=== PATIENT | male | born 1970 | race Caucasian/White ===

== ENCOUNTER 2020-09-16 12:43 | Inpatient (IN) | payer SELFPAY ==
[~2020-09-16] VITALS: Ht 170.2 cm; Wt 113.8 kg
[2020-09-16 12:54] LABS: BILIRUBIN,URINE NEGATIVE (NEG); CLARITY,URINE CLOUDY; COLOR,URINE YELLOW; NITRITE,URINE NEGATIVE (NEG); PH,URINE 6.5 (<5.0-8.0); PROTEIN,URINE NEGATIVE (NEG-TRACE)
--- NOTE | 2020-09-16 13:05 | PHYS DOC ---
Past Medical History Past Medical History: Hypertension General Adult EDM: Chief Complaint: ABDOMINAL PAIN HPI: HPI: Patient is a 50 year old male who presented to ER for evaluation of periumbilical pain since yesterday. Patient noted a tender knot at his umbilical area. Patient had some diarrhea yesterday. Patient denies any nausea vomiting. Patient denies any cough or fever. Review of Systems: Review of Systems: Constitutional: Denies fever or chills. [] Eyes: Denies change in visual acuity. [] HENT: Denies nasal congestion or sore throat. [] Respiratory: Denies cough or shortness of breath. [] Cardiovascular: Denies chest pain or edema. [] GI: Positive for abdominal pain, no nausea vomiting, positive for diarrhea. : Denies dysuria. [] Musculoskeletal: Denies back pain or joint pain. [] Integument: Denies rash. [] Neurologic: Denies headache, focal weakness or sensory changes. [] Endocrine: Denies polyuria or polydipsia. [] Lymphatic: Denies swollen glands. [] Psychiatric: Denies depression or anxiety. [] Heart Score: Risk Factors: Risk Factors: DM, Current or recent (<one month) smoker, HTN, HLP, family history of CAD, obesity. Risk Scores: Score 0 - 3: 2.5% MACE over next 6 weeks - Discharge Home Score 4 - 6: 20.3% MACE over next 6 weeks - Admit for Clinical Observation Score 7 - 10: 72.7% MACE over next 6 weeks - Early Invasive Strategies Allergies: Allergies: Allergies Coded Allergies Type Severity Reaction Last Updated Verified No Known Drug Allergies 09/16/20 No Physical Exam: PE: Constitutional: Well developed, well nourished, no acute distress, non-toxic appearance. [] HENT: Normocephalic, atraumatic, bilateral external ears normal, oropharynx moist, no oral exudates, nose normal. [] Eyes: PERRLA, EOMI, conjunctiva normal, no discharge. [] Neck: Normal range of motion, no tenderness, supple, no stridor. [] Cardiovascular:Heart rate regular rhythm, no murmur [] Lungs & Thorax: Bilateral breath sounds clear to auscultation [] Abdomen: Bowel sounds normal, there is a tender nonreducible umbilical hernia with erythema of the surrounding area. [] Skin: Warm, dry, no erythema, no rash. [] Back: No tenderness, no CVA tenderness. [] Extremities: No tenderness, no cyanosis, no clubbing, ROM intact, no edema. [] Neurologic: Alert and oriented X 3, normal motor function, normal sensory function, no focal deficits noted. [] Psychologic: Affect normal, judgement normal, mood normal. [] Current Patient Data: Labs: Laboratory Tests Test 09/16/20 12:45 09/16/20 13:18 Urine Collection Type Unknown Urine Color Yellow Urine Clarity Cloudy Urine pH 6.5 Urine Specific [place] <=1.005 Urine Protein Negative mg/dL Urine Glucose (UA) Negative mg/dL Urine Ketones (Stick) Negative mg/dL Urine Blood Negative Urine Nitrite Negative Urine Bilirubin Negative Urine Urobilinogen Dipstick 1.0 mg/dL Urine Leukocyte Esterase Negative Urine RBC 0 /HPF Urine WBC 0 /HPF Urine Bacteria 0 /HPF White Blood Count 6.7 x10^3/uL Red Blood Count 4.73 x10^6/uL Hemoglobin 14.9 g/dL Hematocrit 42.8 % Mean Corpuscular Volume 91 fL Mean Corpuscular Hemoglobin 31 pg Mean Corpuscular Hemoglobin Concent 35 g/dL Red Cell Distribution Width 12.6 % Platelet Count 255 x10^3/uL Neutrophils (%) (Auto) 76 % Lymphocytes (%) (Auto) 16 % Monocytes (%) (Auto) 6 % Eosinophils (%) (Auto) 1 % Basophils (%) (Auto) 1 % Neutrophils # (Auto) 5.1 x10^3/uL Lymphocytes # (Auto) 1.1 x10^3/uL Monocytes # (Auto) 0.4 x10^3/uL Eosinophils # (Auto) 0.1 x10^3/uL Basophils # (Auto) 0.0 x10^3/uL Sodium Level 134 mmol/L Potassium Level 3.9 mmol/L Chloride Level 99 mmol/L Carbon Dioxide Level 29 mmol/L Anion Gap 6 Blood Urea Nitrogen 9 mg/dL Creatinine 0.7 mg/dL Estimated GFR (Cockcroft-Gault) 118.9 BUN/Creatinine Ratio 13 Glucose Level 151 mg/dL Calcium Level 9.0 mg/dL Total Bilirubin 0.9 mg/dL Aspartate Amino Transf (AST/SGOT) 50 U/L Alanine Aminotransferase (ALT/SGPT) 40 U/L Alkaline Phosphatase 87 U/L Total Protein 7.0 g/dL Albumin 3.7 g/dL Albumin/Globulin Ratio 1.1 Lipase 89 U/L Current Medications Medications (Trade) Dose Ordered Sig/Antonio Route PRN Reason Start Time Stop Time Status Last Admin Dose Admin Iohexol (Omnipaque 300 Mg/ml) 75 ml 1X ONCE IV 09/16/20 14:15 09/16/20 14:17 DC 09/16/20 14:27 Info (CONTRAST GIVEN -- Rx MONITORING) 1 each PRN DAILY PRN MC SEE COMMENTS 09/16/20 14:30 09/18/20 14:29 EKG: EKG: [] Radiology/Procedures: Radiology/Procedures: [][facility] [address] [place] [address] IMAGING REPORT Signed PATIENT: EDIS SPENCER ACCOUNT: [id number] : 11/26/1928 LOCATION: ER AGE: 89 SEX: M EXAM STATUS: PRE ER ORD. PHYSICIAN: MARITA FLORES DO REASON: chest pain PROCEDURE: PORTABLE CHEST 1V XR CHEST 1V Clinical Indication: Reason: chest pain Comparison: None. Findings: The cardiomediastinal silhouette is normal. Atherosclerotic thoracic aorta. Tiny radiodensities project over the left costophrenic angle, may be artifact or tiny metallic foreign bodies. Lungs are clear. There is no pneumothorax. No pleural effusion is appreciated. There is bilateral lateral pleural thickening. No acute bone abnormality. Arthropathy of the shoulders, worse on the right. IMPRESSION: No acute cardiopulmonary process. Electronically signed by: Elliott Alvarado MD (09/16/2020 11:18 AM) [id number] DICTATED and SIGNED BY: ELLIOTT ALVARADO MD DATE: 09/16/20 [id number] 0 Course & Med Decision Making: Course & Med Decision Making Pertinent Labs and Imaging studies reviewed. (See chart for details) Patient is a 50-year-old male who was found to have an incarcerated umbilical hernia containing fat and part of the appendage of the sigmoid colon, discussed with the General Surgeon division roadmaster, Dr. JATINDER GOLD, recommended admission to hospitalist service, get rapid COVID TEST, WILL FIX IT TOMORROW. KEEP NPO AFTER MIDNIGHT. Discussed with Dr. Montesinos, Hospitalist, agreed to admit patient. Shola Disclaimer: Shola Disclaimer: This electronic medical record was generated, in whole or in part, using a voice recognition dictation system. Departure Departure Impression: Primary Impression: Incarcerated umbilical hernia Disposition: ADMITTED INPT THIS HOSP Admitting Physician: [facility] (Dr. Montesinos) Condition: STABLE Referrals: UNKNOWN PCP NAME (PCP) MARITA FLORES DO Sep 16, 2020 13:05
[2020-09-16 13:16] LABS: BACTERIA,URINE 0 /HPF (0-FEW); RBC,URINE 0 /HPF (0-2); WBC,URINE 0 /HPF (0-4)
[2020-09-16 13:29] LABS: BASO % 1 % (0-3); EOS # 0.1 x10^3/uL (0.0-0.7); EOS % 1 % (0-3); HEMATOCRIT 42.8 % (39.0-53.0); HEMOGLOBIN 14.9 g/dL (13.0-17.5); LYMPH # 1.1 x10^3/uL (1.0-4.8); LYMPH % 16 % (24-48); MEAN CORPUSCULAR HEMOGLOBIN 31 pg (25-35); MEAN CORPUSCULAR HGB CONC 35 g/dL (31-37); MEAN CORPUSCULAR VOLUME 91 fL (79-100); MONO # 0.4 x10^3/uL (0.0-1.1); MONO % 6 % (0-9); NEUT # 5.1 x10^3/uL (1.8-7.7); NEUT % 76 % (31-73); PLATELET COUNT 255 x10^3/uL (140-400); RED BLOOD COUNT 4.73 x10^6/uL (4.30-5.70); RED CELL DISTRIBUTION WIDTH 12.6 % (11.5-14.5); WHITE BLOOD COUNT 6.7 x10^3/uL (4.0-11.0)
[2020-09-16 13:40] LABS: CREATININE 0.7 mg/dL (0.7-1.3); GFR 118.9; POTASSIUM 3.9 mmol/L (3.5-5.1)
[2020-09-16 13:46] LABS: ALBUMIN 3.7 g/dL (3.4-5.0); ALBUMIN/GLOBULIN RATIO 1.1 (1.0-1.7); TOTAL BILIRUBIN 0.9 mg/dL (0.2-1.0)
[2020-09-16] MEDS ORDERED: IOHEXOL 300 MG/ML 100ML VIAL. IV ONE (14:15)
[2020-09-16] MEDS ORDERED: CONTRAST GIVEN. MC PRN (14:30)
--- NOTE | 2020-09-16 15:00 | RAD ---
PQRS Compliance Statement: One or more of the following individualized dose reduction techniques were utilized for this examinat ion: 1. Automated exposure control 2. Adjustment of the mA and/or kV according to patient size 3. Use of iterative reconstruction technique CT ABDOMEN+PELVIS W Clinical Indication: Reason: PERIUMBILICAL ABDOMINAL PAIN, UMBILICAL HERNIA, NONREDUCIBLE. Comparison: None. Technique: Helical CT imaging of the abdomen and pelvis is performed after 75 cc of Omnipaque 300 IV contrast. Oral contrast not administered. Findings: Tiny calcified granuloma left lower lobe. Cardiac size normal. Liver, gallbladder, spleen, pancreas, adrenal glands, abdominal aorta, and kidneys are normal. No obvious abnormality of the stomach. There is periumbilical hernia contains fat and an inflamed probable epiploic appendage from the adjac ent redundant sigmoid colon. The appendage has typical central fat density with a soft tissue rim. Th ere is surrounding inflammation in the hernia. There is ventral abdominal wall subcutaneous fat indur ation surrounding the umbilical hernia. There is no dilated small bowel. There is no colon wall thickening. The appendix is not seen, no seco ndary signs of appendicitis. There is no abdominal adenopathy. The urinary bladder is not well distended accentuating the wall thickness. Prostate and seminal vesic les are normal. There is no pelvic free fluid. No acute bone abnormality. There is anterior endplate spurring of L1/L2. IMPRESSION: There is subcutaneous fat induration surrounding small umbilical hernia. Within the hernia there is a probable epiploic appendage of the adjacent sigmoid colon. There is appendagitis. Electronically signed by: Elliott Alvarado MD (09/16/2020 2:58 PM) [id number]
[2020-09-16] MEDS ORDERED: ONDANSETRON PF 4 MG/2 ML VIAL. IV PRN (15:45)
[2020-09-16] MEDS ORDERED: MORPHINE SULFATE 2 MG/ML VIAL. IV PRN (15:45)
[2020-09-16] MEDS ORDERED: ONDANSETRON PF 4 MG/2 ML VIAL. IVP PRN (16:30)
[2020-09-16] MEDS ORDERED: MAG HYDROX/ALUMINUM HYD/SIMETH 30 ML ORAL.SUSP PO PRN (16:30)
[2020-09-16] MEDS ORDERED: BISACODYL 10 MG SUPP.RECT. PR PRN (16:30)
[2020-09-16] MEDS ORDERED: ACETAMINOPHEN 325 MG TABLET. PO PRN (16:30)
[2020-09-16] MEDS ORDERED: ZOLPIDEM 5 MG TABLET. PO PRN (16:30)
[2020-09-16] MEDS ORDERED: MAGNESIUM HYDROXIDE 2,400 MG/30 ML ORAL.SUSP. PO PRN (16:30)
[2020-09-16] MEDS ORDERED: CALCIUM CARBONATE 500 MG TAB.CHEW PO PRN (16:30)
--- NOTE | 2020-09-16 16:42 | PDOC1 ---
History and Physical Date of Admission Date of Admission DATE: 09/16/20 TIME: 16:26 Identification/Chief Complaint Chief Complaint Abdominal pain Source Source: Patient History of Present Illness History of Present Illness Patient 50-year-old male with past medical history hypertension, hyperlipidemia presents to the ER with complaints of worsening abdominal pain. States pain started 4 days ago as he was lifting a heavy object. States at the time pain was about 2/10, however pain has progressed to currently 7/10. He noticed an associated hard lump in his umbilical region. CT abdomen pelvis obtained in the ER and a small umbilical hernia was noted. Maximum blood pressure in ER was noted to be 204/96. Denies nausea, vomiting, or constipation. Will admit patient with surgical consult for further medical management. Past Medical History Past Medical History Hypertension, hyperlipidemia Past Surgical History Past Surgical History: Appendectomy Family History Family History: Stroke Social History Smoke: No ALCOHOL: occassional Drugs: Marijuana Current Problem List Problem List Problems Medical Problems: (1) Incarcerated umbilical hernia Status: Acute Current Medications Current Medications Current Medications Iohexol (Omnipaque 300 Mg/ml) 75 ml 1X ONCE IV Last administered on 09/16/20at 14:27; Start 09/16/20 at 14:15; Stop 09/16/20 at 14:17; Status DC Info (CONTRAST GIVEN -- Rx MONITORING) 1 each PRN DAILY PRN MC SEE COMMENTS; Start 09/16/20 at 14:30; Stop 09/18/20 at 14:29 Ondansetron HCl (Zofran) 4 mg PRN Q8HRS PRN IV NAUSEA/VOMITING; Start 09/16/20 at 15:45; Stop 09/17/20 at 15:44 Morphine Sulfate (Morphine Sulfate) 2 mg PRN Q2HR PRN IV PAIN; Start 09/16/20 at 15:45; Stop 09/17/20 at 15:44 Ondansetron HCl (Zofran) 4 mg PRN Q6HRS PRN IVP NAUSEA/VOMITING; Start 09/16/20 at 16:30; Status UNV Al Hydroxide/Mg Hydroxide (Mylanta Plus Xs) 30 ml PRN Q3HRS PRN PO HEARTBURN / GAS; Start 09/16/20 at 16:30; Status UNV Calcium Carbonate/ Glycine (Tums) 500 mg PRN Q3HRS PRN PO UPSET STOMACH; Start 09/16/20 at 16:30; Status UNV Zolpidem Tartrate (Ambien) 5 mg PRN QHS PRN PO INSOMNIA, MAY REPEAT IN 1HR; Start 09/16/20 at 16:30; Status UNV Acetaminophen/ Hydrocodone Bitart (Lortab 5/325) 1 tab PRN Q4HRS PRN PO MILD PAIN 1-3; Start 09/16/20 at 16:30; Status UNV Acetaminophen/ Hydrocodone Bitart (Lortab 5/325) 2 tab PRN Q4HRS PRN PO MODERATE PAIN, SEVERE PAIN; Start 09/16/20 at 16:30; Status UNV Acetaminophen (Tylenol) 650 mg PRN Q6HRS PRN PO Headaches, Temp > 101.5F; Start 09/16/20 at 16:30; Status UNV Magnesium Hydroxide (Milk Of Magnesia) 2,400 mg PRN Q12HR PRN PO CONSTIPATION; Start 09/16/20 at 16:30; Status UNV Bisacodyl (Dulcolax Supp) 10 mg PRN DAILY PRN CA CONSTIPATION; Start 09/16/20 at 16:30; Status UNV Heparin Sodium (Porcine) (Heparin Sodium) 5,000 unit Q8HRS SQ ; Start 09/16/20 at 22:00; Status UNV Allergies Allergies: Coded Allergies: No Known Drug Allergies (Unverified , 09/16/20) ROS Review of System GENERAL: No history of weight change, weakness or fevers. SKIN: No bruising, hair changes or rashes. EYES: No blurred, double or loss of vision. NOSE AND THROAT: No history of nosebleeds, hoarseness or sore throat. HEART: Denies chest pain, denies palpitations. LUNGS: Denies cough, hemoptysis, wheezing or shortness of breath. GASTROINTESTINAL: Abdominal pain. Denies nausea, vomiting. GENITOURINARY: Denies dysuria, frequency, urgency, hematuria. NEUROLOGIC: Denies history of numbness, tingling, tremor or weakness. PSYCHIATRIC: Denies anxiety, denies depression. ENDOCRINE: No history of heat or cold intolerance, polyuria or polydipsia. EXTREMITIES: Denies muscle weakness, joint pain, pain on walking or stiffness. Physical Exam Physical Exam General: Alert, Oriented X3, Cooperative, No acute distress HEENT: PERRLA, EOMI Lungs: Clear to auscultation, Normal air movement Heart: RRR, no murmurs Cardiovascular: S1, S2 Abdomen: Tender, nonreducible umbilical hernia. Normal bowel sounds, Soft. Extremities: No clubbing, No cyanosis Skin: Periumbilical erythema. No significant lesion Neuro: Normal speech, Normal tone, Sensation intact Psych/Mental Status: Mental status NL, Mood NL Vitals Vitals Vital Signs Date Time Temp Pulse Resp B/P (MAP) Pulse Ox O2 Delivery O2 Flow Rate FiO2 09/16/20 14:30 75 204/96 (132) 98 Room Air 09/16/20 12:50 98.6 18 98.6 Labs Labs Laboratory Tests Test 09/16/20 12:45 09/16/20 13:18 Urine Collection Type Unknown Urine Color Yellow Urine Clarity Cloudy Urine pH 6.5 (<5.0-8.0) Urine Specific [place] <=1.005 (1.000-1.030) Urine Protein Negative mg/dL (NEG-TRACE) Urine Glucose (UA) Negative mg/dL (NEG) Urine Ketones (Stick) Negative mg/dL (NEG) Urine Blood Negative (NEG) Urine Nitrite Negative (NEG) Urine Bilirubin Negative (NEG) Urine Urobilinogen Dipstick 1.0 mg/dL (0.2 mg/dL) Urine Leukocyte Esterase Negative (NEG) Urine RBC 0 /HPF (0-2) Urine WBC 0 /HPF (0-4) Urine Bacteria 0 /HPF (0-FEW) White Blood Count 6.7 x10^3/uL (4.0-11.0) Red Blood Count 4.73 x10^6/uL (4.30-5.70) Hemoglobin 14.9 g/dL (13.0-17.5) Hematocrit 42.8 % (39.0-53.0) Mean Corpuscular Volume 91 fL (79-100) Mean Corpuscular Hemoglobin 31 pg (25-35) Mean Corpuscular Hemoglobin Concent 35 g/dL (31-37) Red Cell Distribution Width 12.6 % (11.5-14.5) Platelet Count 255 x10^3/uL (140-400) Neutrophils (%) (Auto) 76 % (31-73) Lymphocytes (%) (Auto) 16 % (24-48) Monocytes (%) (Auto) 6 % (0-9) Eosinophils (%) (Auto) 1 % (0-3) Basophils (%) (Auto) 1 % (0-3) Neutrophils # (Auto) 5.1 x10^3/uL (1.8-7.7) Lymphocytes # (Auto) 1.1 x10^3/uL (1.0-4.8) Monocytes # (Auto) 0.4 x10^3/uL (0.0-1.1) Eosinophils # (Auto) 0.1 x10^3/uL (0.0-0.7) Basophils # (Auto) 0.0 x10^3/uL (0.0-0.2) Sodium Level 134 mmol/L (136-145) Potassium Level 3.9 mmol/L (3.5-5.1) Chloride Level 99 mmol/L (98-107) Carbon Dioxide Level 29 mmol/L (21-32) Anion Gap 6 (6-14) Blood Urea Nitrogen 9 mg/dL (8-26) Creatinine 0.7 mg/dL (0.7-1.3) Estimated GFR (Cockcroft-Gault) 118.9 BUN/Creatinine Ratio 13 (6-20) Glucose Level 151 mg/dL (70-99) Calcium Level 9.0 mg/dL (8.5-10.1) Total Bilirubin 0.9 mg/dL (0.2-1.0) Aspartate Amino Transf (AST/SGOT) 50 U/L (15-37) Alanine Aminotransferase (ALT/SGPT) 40 U/L (16-63) Alkaline Phosphatase 87 U/L (46-116) Total Protein 7.0 g/dL (6.4-8.2) Albumin 3.7 g/dL (3.4-5.0) Albumin/Globulin Ratio 1.1 (1.0-1.7) Lipase 89 U/L (73-393) Laboratory Tests Test 09/16/20 12:45 09/16/20 13:18 Urine Collection Type Unknown Urine Color Yellow Urine Clarity Cloudy Urine pH 6.5 (<5.0-8.0) Urine Specific [place] <=1.005 (1.000-1.030) Urine Protein Negative mg/dL (NEG-TRACE) Urine Glucose (UA) Negative mg/dL (NEG) Urine Ketones (Stick) Negative mg/dL (NEG) Urine Blood Negative (NEG) Urine Nitrite Negative (NEG) Urine Bilirubin Negative (NEG) Urine Urobilinogen Dipstick 1.0 mg/dL (0.2 mg/dL) Urine Leukocyte Esterase Negative (NEG) Urine RBC 0 /HPF (0-2) Urine WBC 0 /HPF (0-4) Urine Bacteria 0 /HPF (0-FEW) White Blood Count 6.7 x10^3/uL (4.0-11.0) Red Blood Count 4.73 x10^6/uL (4.30-5.70) Hemoglobin 14.9 g/dL (13.0-17.5) Hematocrit 42.8 % (39.0-53.0) Mean Corpuscular Volume 91 fL (79-100) Mean Corpuscular Hemoglobin 31 pg (25-35) Mean Corpuscular Hemoglobin Concent 35 g/dL (31-37) Red Cell Distribution Width 12.6 % (11.5-14.5) Platelet Count 255 x10^3/uL (140-400) Neutrophils (%) (Auto) 76 % (31-73) Lymphocytes (%) (Auto) 16 % (24-48) Monocytes (%) (Auto) 6 % (0-9) Eosinophils (%) (Auto) 1 % (0-3) Basophils (%) (Auto) 1 % (0-3) Neutrophils # (Auto) 5.1 x10^3/uL (1.8-7.7) Lymphocytes # (Auto) 1.1 x10^3/uL (1.0-4.8) Monocytes # (Auto) 0.4 x10^3/uL (0.0-1.1) Eosinophils # (Auto) 0.1 x10^3/uL (0.0-0.7) Basophils # (Auto) 0.0 x10^3/uL (0.0-0.2) Sodium Level 134 mmol/L (136-145) Potassium Level 3.9 mmol/L (3.5-5.1) Chloride Level 99 mmol/L (98-107) Carbon Dioxide Level 29 mmol/L (21-32) Anion Gap 6 (6-14) Blood Urea Nitrogen 9 mg/dL (8-26) Creatinine 0.7 mg/dL (0.7-1.3) Estimated GFR (Cockcroft-Gault) 118.9 BUN/Creatinine Ratio 13 (6-20) Glucose Level 151 mg/dL (70-99) Calcium Level 9.0 mg/dL (8.5-10.1) Total Bilirubin 0.9 mg/dL (0.2-1.0) Aspartate Amino Transf (AST/SGOT) 50 U/L (15-37) Alanine Aminotransferase (ALT/SGPT) 40 U/L (16-63) Alkaline Phosphatase 87 U/L (46-116) Total Protein 7.0 g/dL (6.4-8.2) Albumin 3.7 g/dL (3.4-5.0) Albumin/Globulin Ratio 1.1 (1.0-1.7) Lipase 89 U/L (73-393) Images Images CT ABDOMEN+PELVIS W Clinical Indication: Reason: PERIUMBILICAL ABDOMINAL PAIN, UMBILICAL HERNIA, NONREDUCIBLE. Comparison: None. Technique: Helical CT imaging of the abdomen and pelvis is performed after 75 cc of Omnipaque 300 IV contrast. Oral contrast not administered. Findings: Tiny calcified granuloma left lower lobe. Cardiac size normal. Liver, gallbladder, spleen, pancreas, adrenal glands, abdominal aorta, and kidneys are normal. No obvious abnormality of the stomach. There is periumbilical hernia contains fat and an inflamed probable epiploic appendage from the adjacent redundant sigmoid colon. The appendage has typical central fat density with a soft tissue rim. There is surrounding inflammation in the hernia. There is ventral abdominal wall subcutaneous fat induration surrounding the umbilical hernia. There is no dilated small bowel. There is no colon wall thickening. The appendix is not seen, no secondary signs of appendicitis. There is no abdominal adenopathy. The urinary bladder is not well distended accentuating the wall thickness. Pros brandon and seminal vesicles are normal. There is no pelvic free fluid. No acute bone abnormality. There is anterior endplate spurring of L1/L2. IMPRESSION: There is subcutaneous fat induration surrounding small umbilical hernia. Within the hernia there is a probable epiploic appendage of the adjacent sigmoid colon. There is appendagitis. VTE Prophylaxis Ordered VTE Prophylaxis Devices: No VTE Pharmacological Prophylaxi: Yes Assessment/Plan Assessment/Plan Incarcerated umbilical hernia Hypertensive urgency Plan: Consultation placed to general surgery; patient is planned for surgery tomorrow morning Empiric antibiotics for noted appendagitis. He may have cardiac diet, but NPO after midnight. Pain and nausea medications as needed Resume home anti-hypertensive medications; IV antihypertensives per blood pressure parameters FEN - Cardiac diet; NPO after midnight PPX - Heparin FULL CODE Dispo - inpatient for above Justifications for Admission Other Justification Incarcerated umbilical hernia VALERIE VALENTIN MD Sep 16, 2020 16:42
[2020-09-16] MEDS ORDERED: hydrALAZINE 20 MG/ML VIAL. IVP PRN (16:45)
[2020-09-16] MEDS ORDERED: LABETALOL 20 MG/4 ML DISP.SYRIN. IVP PRN (16:45)
[2020-09-16] MEDS ORDERED: PIP/TAZO PER PHARMACY MC PRN (16:45)
[2020-09-16] MEDS ORDERED: PIPERACILLIN/TAZOBACTAM 3.375 GM in IV NORMAL SALINE 50ML 50 ML IV ONE (17:00)
[2020-09-16] MEDS: HEPARIN for SUB-Q USE 5,000 UNIT/ML VIAL. SQ SCH ×2 (17:38→22:45)
[2020-09-16] MEDS: MORPHINE SULFATE 4 MG/ML VIAL. IV PRN (18:44)
[2020-09-16 19:00] VITALS: BP 161/89
[2020-09-16] MEDS ORDERED: atenolol (20:29)
[2020-09-16] MEDS ORDERED: lisinopril (20:29)
[2020-09-16] MEDS: HYDROcodone/APAP 5/325MG 1 TAB TABLET PO PRN (20:51)
[2020-09-16 23:00] VITALS: BP 113/59
[2020-09-17] VITALS (10 sets, daily range): BP systolic 131–153; BP diastolic 62–101
[2020-09-17] MEDS: PIPERACILLIN/TAZOBACTAM 3.375 GM in IV NORMAL SALINE 50ML 50 ML IV SCH ×4 (00:15→17:57)
[2020-09-17] MEDS ORDERED: IV RINGERS,LACTATED 1000ML 1,000 ML IV SCH (06:00)
[2020-09-17] MEDS ORDERED: MORPHINE SULFATE 2 MG/ML VIAL. IVP PRN (06:00)
[2020-09-17] MEDS ORDERED: HYDROmorphone 2 MG/ML VIAL IVP PRN (06:00)
[2020-09-17] MEDS ORDERED: PROCHLORPERAZINE 10 MG/2 ML VIAL. IVP PRN (06:00)
[2020-09-17] MEDS: HEPARIN for SUB-Q USE 5,000 UNIT/ML VIAL. SQ SCH ×3 (06:00→22:13)
[2020-09-17] MEDS ORDERED: fentaNYL PF VIAL 100 MCG/2 ML VIAL IVP PRN ×2 (06:00)
--- NOTE | 2020-09-17 06:14 | NUR ---
Patient's 0600 heparin held, as to have surgery this morning.
[2020-09-17] MEDS: MORPHINE SULFATE 4 MG/ML VIAL. IV PRN (07:44)
--- NOTE | 2020-09-17 08:32 | PDOC ---
[employer] PROGRESS NOTE Date of Service DOS: DATE: 09/17/20 TIME: 08:30 Chief Complaint Chief Complaint Incarcerated umbilical hernia Hypertensive urgency Plan: Consultation placed to general surgery; patient is planned for surgery tomorrow morning Empiric antibiotics for noted appendagitis. He may have cardiac diet, but NPO after midnight. Pain and nausea medications as needed Resume home anti-hypertensive medications; IV antihypertensives per blood pressure parameters FEN - Cardiac diet; NPO after midnight PPX - Heparin FULL CODE Dispo - inpatient for above History of Present Illness History of Present Illness Patient 50-year-old male with past medical history hypertension, hyperlipidemia presents to the ER with complaints of worsening abdominal pain. States pain started 4 days ago as he was lifting a heavy object. States at the time pain was about 2/10, however pain has progressed to currently 7/10. He noticed an associated hard lump in his umbilical region. CT abdomen pelvis obtained in the ER and a small umbilical hernia was noted. Maximum blood pressure in ER was noted to be 204/96. Denies nausea, vomiting, or constipation. Will admit patient with surgical consult for further medical management. 09/17: Patient seen and evaluated. Blood pressure improved. Still with mild periumbilical pain, resolving periumbilical erythema. Surgery planned for today. Patient adamant about being able to discharge by Sunday for [facility]. Vitals/I&O Vitals/I&O: Vital Signs Date Time Temp Pulse Resp B/P (MAP) Pulse Ox O2 Delivery O2 Flow Rate FiO2 09/17/20 07:44 Room Air 09/17/20 07:00 98.0 60 17 139/75 (96) 97 98.0 I & O 09/16/20 09/16/20 09/17/20 15:00 23:00 07:00 Intake Total 50 ml 100 ml Output Total 200 ml Balance 50 ml -100 ml Physical Exam General: Alert, Oriented X3, Cooperative, mild distress Heart: Regular rate Lungs: Clear Abdomen: Other (Tender, nonreducible umbilical hernia) Extremities: No clubbing, No cyanosis Skin: No breakdown, Other (Periumbilical erythema) Labs Labs: Laboratory Tests Test 09/16/20 12:45 09/16/20 13:18 09/16/20 15:31 Urine Collection Type Unknown Urine Color Yellow Urine Clarity Cloudy Urine pH 6.5 (<5.0-8.0) Urine Specific [place] <=1.005 (1.000-1.030) Urine Protein Negative mg/dL (NEG-TRACE) Urine Glucose (UA) Negative mg/dL (NEG) Urine Ketones (Stick) Negative mg/dL (NEG) Urine Blood Negative (NEG) Urine Nitrite Negative (NEG) Urine Bilirubin Negative (NEG) Urine Urobilinogen Dipstick 1.0 mg/dL (0.2 mg/dL) Urine Leukocyte Esterase Negative (NEG) Urine RBC 0 /HPF (0-2) Urine WBC 0 /HPF (0-4) Urine Bacteria 0 /HPF (0-FEW) White Blood Count 6.7 x10^3/uL (4.0-11.0) Red Blood Count 4.73 x10^6/uL (4.30-5.70) Hemoglobin 14.9 g/dL (13.0-17.5) Hematocrit 42.8 % (39.0-53.0) Mean Corpuscular Volume 91 fL (79-100) Mean Corpuscular Hemoglobin 31 pg (25-35) Mean Corpuscular Hemoglobin Concent 35 g/dL (31-37) Red Cell Distribution Width 12.6 % (11.5-14.5) Platelet Count 255 x10^3/uL (140-400) Neutrophils (%) (Auto) 76 % (31-73) Lymphocytes (%) (Auto) 16 % (24-48) Monocytes (%) (Auto) 6 % (0-9) Eosinophils (%) (Auto) 1 % (0-3) Basophils (%) (Auto) 1 % (0-3) Neutrophils # (Auto) 5.1 x10^3/uL (1.8-7.7) Lymphocytes # (Auto) 1.1 x10^3/uL (1.0-4.8) Monocytes # (Auto) 0.4 x10^3/uL (0.0-1.1) Eosinophils # (Auto) 0.1 x10^3/uL (0.0-0.7) Basophils # (Auto) 0.0 x10^3/uL (0.0-0.2) Sodium Level 134 mmol/L (136-145) Potassium Level 3.9 mmol/L (3.5-5.1) Chloride Level 99 mmol/L (98-107) Carbon Dioxide Level 29 mmol/L (21-32) Anion Gap 6 (6-14) Blood Urea Nitrogen 9 mg/dL (8-26) Creatinine 0.7 mg/dL (0.7-1.3) Estimated GFR (Cockcroft-Gault) 118.9 BUN/Creatinine Ratio 13 (6-20) Glucose Level 151 mg/dL (70-99) Calcium Level 9.0 mg/dL (8.5-10.1) Total Bilirubin 0.9 mg/dL (0.2-1.0) Aspartate Amino Transf (AST/SGOT) 50 U/L (15-37) Alanine Aminotransferase (ALT/SGPT) 40 U/L (16-63) Alkaline Phosphatase 87 U/L (46-116) Total Protein 7.0 g/dL (6.4-8.2) Albumin 3.7 g/dL (3.4-5.0) Albumin/Globulin Ratio 1.1 (1.0-1.7) Lipase 89 U/L (73-393) SARS-CoV-2 Antigen (Rapid) Negative (NEGATIVE) Assessment and Plan Assessmemt and Plan Problems Medical Problems: (1) Incarcerated umbilical hernia Status: Acute Comment Review of Relevant I have reviewed the following items kirstie (where applicable) has been applied. Medications: Current Medications Medications (Trade) Dose Ordered Sig/Antonio Route PRN Reason Start Time Stop Time Status Last Admin Dose Admin Iohexol (Omnipaque 300 Mg/ml) 75 ml 1X ONCE IV 09/16/20 14:15 09/16/20 14:17 DC 09/16/20 14:27 Acetaminophen/ Hydrocodone Bitart (Lortab 5/325) 1 tab PRN Q4HRS PRN PO MILD PAIN 1-3 09/16/20 16:30 09/16/20 20:51 Heparin Sodium (Porcine) (Heparin Sodium) 5,000 unit Q8HRS SQ 09/16/20 17:00 09/16/20 22:45 Morphine Sulfate (Morphine Sulfate) 4 mg PRN Q2HRS PRN IV MODERATE TO SEVERE PAIN 09/16/20 16:30 09/17/20 07:44 Piperacillin Sod/ Tazobactam Sod 3.375 gm/Sodium Chloride 50 ml @ 100 mls/hr 1X ONCE IV 09/16/20 17:00 2/4/21 17:29 DC 09/16/20 17:06 Piperacillin Sod/ Tazobactam Sod 3.375 gm/Sodium Chloride 50 ml @ 100 mls/hr Q6HRS IV 09/17/20 00:00 09/17/20 06:00 Justifications for Admission Other Justification Incarcerated umbilical hernia VALERIE VALENTIN MD Sep 17, 2020 08:32
--- NOTE | 2020-09-17 08:37 | PDOC2 ---
TYSON VANESSA COMPUTER SCIENCE PROFESSOR 09/17/20 0837: CONSULT Date of Consult Date of Consult DATE: 09/17/20 TIME: 08:30 Reason for Consult Reason for Consult: umbilical hernia Referring Physician Referring Physician: ER Identification/Chief Complaint Chief Complaint abdominal pain Source Source: Chart review, Patient History of Present Illness Reason for Visit: Reports sunday helping friend move and noticed pain in umbilical area, but it was not bad, seemed to worsen over the week, yesterday, hard lump and redness to abdomen, came to ER . Had not noticed a hernia prior to this Past Medical History Cardiovascular: HTN Past Surgical History Past Surgical History: Appendectomy Family History Family History: Stroke Social History No ALCOHOL: occassional Drugs: Cocaine (2 weeks ago, rare use at this time, did use heavier in past ), Marijuana Current Problem List Problem List Problems Medical Problems: (1) Incarcerated umbilical hernia Status: Acute Current Medications Current Medications Current Medications Iohexol (Omnipaque 300 Mg/ml) 75 ml 1X ONCE IV Last administered on 09/16/20at 14:27; Start 09/16/20 at 14:15; Stop 09/16/20 at 14:17; Status DC Info (CONTRAST GIVEN -- Rx MONITORING) 1 each PRN DAILY PRN MC SEE COMMENTS; Start 09/16/20 at 14:30; Stop 09/18/20 at 14:29 Ondansetron HCl (Zofran) 4 mg PRN Q8HRS PRN IV NAUSEA/VOMITING; Start 09/16/20 at 15:45; Stop 09/17/20 at 15:44 Morphine Sulfate (Morphine Sulfate) 2 mg PRN Q2HR PRN IV PAIN; Start 09/16/20 at 15:45; Stop 09/17/20 at 15:44 Ondansetron HCl (Zofran) 4 mg PRN Q6HRS PRN IVP NAUSEA/VOMITING; Start 09/16/20 at 16:30 Al Hydroxide/Mg Hydroxide (Mylanta Plus Xs) 30 ml PRN Q3HRS PRN PO HEARTBURN / GAS; Start 09/16/20 at 16:30 Calcium Carbonate/ Glycine (Tums) 500 mg PRN Q3HRS PRN PO UPSET STOMACH; Start 09/16/20 at 16:30 Zolpidem Tartrate (Ambien) 5 mg PRN QHS PRN PO INSOMNIA, MAY REPEAT IN 1HR; Start 09/16/20 at 16:30 Acetaminophen/ Hydrocodone Bitart (Lortab 5/325) 1 tab PRN Q4HRS PRN PO MILD PAIN 1-3 Last administered on 09/16/20at 20:51; Start 09/16/20 at 16:30 Acetaminophen/ Hydrocodone Bitart (Lortab 5/325) 2 tab PRN Q4HRS PRN PO MODERATE PAIN, SEVERE PAIN; Start 09/16/20 at 16:30 Acetaminophen (Tylenol) 650 mg PRN Q6HRS PRN PO Headaches, Temp > 101.5F; Start 09/16/20 at 16:30 Magnesium Hydroxide (Milk Of Magnesia) 2,400 mg PRN Q12HR PRN PO CONSTIPATION; Start 09/16/20 at 16:30 Bisacodyl (Dulcolax Supp) 10 mg PRN DAILY PRN [place] CONSTIPATION; Start 09/16/20 at 16:30 Heparin Sodium (Porcine) (Heparin Sodium) 5,000 unit Q8HRS SQ Last administered on 09/16/20at 22:45; Start 09/16/20 at 17:00 Morphine Sulfate (Morphine Sulfate) 4 mg PRN Q2HRS PRN IV MODERATE TO SEVERE PAIN Last administered on 09/17/20at 07:44; Start 09/16/20 at 16:30 Labetalol HCl (Normodyne Iv Push) 10 mg PRN Q20MIN PRN IVP HYPERTENSION; Start 09/16/20 at 16:45 Hydralazine HCl (Apresoline Inj) 10 mg PRN Q20MIN PRN IVP HYPERTENSION-1ST CHOICE; Start 09/16/20 at 16:45 Piperacillin Sod/ Tazobactam Sod (Zosyn Per Pharmacy) 1 each PRN DAILY PRN MC SEE COMMENTS; Start 09/16/20 at 16:45 Piperacillin Sod/ Tazobactam Sod 3.375 gm/Sodium Chloride 50 ml @ 100 mls/hr 1X ONCE IV Last administered on 09/16/20at 17:06; Start 09/16/20 at 17:00; Stop 09/16/20 at 17:29; Status DC Fentanyl Citrate (Fentanyl 2ml Vial) 25 mcg PRN Q5MIN PRN IVP MILD PAIN 1-3; Start 09/17/20 at 06:00; Stop 09/18/20 at 05:59 Fentanyl Citrate (Fentanyl 2ml Vial) 50 mcg PRN Q5MIN PRN IVP MODERATE PAIN 4- 6; Start 09/17/20 at 06:00; Stop 09/18/20 at 05:59 Morphine Sulfate (Morphine Sulfate) 1 mg PRN Q10MIN PRN IVP SEVERE PAIN 7-10; Start 09/17/20 at 06:00; Stop 09/18/20 at 05:59 Ringer's Solution 1,000 ml @ 30 mls/hr Q24H IV ; Start 09/17/20 at 06:00; Stop 09/17/20 at 17:59 Hydromorphone HCl (Dilaudid) 0.5 mg PRN Q10MIN PRN IVP SEVERE PAIN 7-10, 2nd CHOICE; Start 09/17/20 at 06:00; Stop 09/18/20 at 05:59 Prochlorperazine Edisylate (Compazine) 5 mg PACU PRN PRN IVP NAUSEA, MRX1; Start 09/17/20 at 06:00; Stop 09/18/20 at 05:59 Piperacillin Sod/ Tazobactam Sod 3.375 gm/Sodium Chloride 50 ml @ 100 mls/hr Q6HRS IV Last administered on 09/17/20at 06:00; Start 09/17/20 at 00:00 Active Scripts Active Reported [atenolol] [lisinopril] Allergies Allergies: Coded Allergies: No Known Drug Allergies (Unverified , 09/16/20) ROS General: No: Chills, Other (fevers ) PSYCHOLOGICAL ROS: No: Anxiety, Depression Eyes: No Blurry vision, No Double vision HEENT: No: Heacaches, Sore Throat Hematological and Lymphatic: No: Bleeding Problems, Blood Clots Respiratory: No: Cough, Shortness of breath Cardiovascular: No Chest Pain, No Palpitations Gastrointestinal: Yes Other (see hpi) Genitourinary: No Dysuria, No Hematuria Musculoskeletal: No Joint Pain, No Muscle Pain Neurological: No Confusion, No Numbness/Tingling Skin: No Pruritus, No Rash Physical Exam General: Alert, Oriented X3, Cooperative HEENT: Atraumatic, PERRLA Lungs: Clear to auscultation, Normal air movement Heart: Regular rate, Normal S1, Normal S2 Abdomen: Soft, Other (umbilical hernia, TTP, unable to reduce, surrounding erythema to abdomen ) Extremities: No clubbing, No cyanosis Skin: No rashes, No breakdown Neuro: Normal gait, Normal speech Psych/Mental Status: Mental status NL, Mood NL MUSCULOSKELETAL: No deformity, No swelling Vitals VITALS Vital Signs Date Time Temp Pulse Resp B/P (MAP) Pulse Ox O2 Delivery O2 Flow Rate FiO2 09/17/20 07:44 Room Air 09/17/20 07:00 98.0 60 17 139/75 (96) 97 98.0 Labs Labs Laboratory Tests Test 09/16/20 12:45 09/16/20 13:18 09/16/20 15:31 Urine Collection Type Unknown Urine Color Yellow Urine Clarity Cloudy Urine pH 6.5 (<5.0-8.0) Urine Specific [place] <=1.005 (1.000-1.030) Urine Protein Negative mg/dL (NEG-TRACE) Urine Glucose (UA) Negative mg/dL (NEG) Urine Ketones (Stick) Negative mg/dL (NEG) Urine Blood Negative (NEG) Urine Nitrite Negative (NEG) Urine Bilirubin Negative (NEG) Urine Urobilinogen Dipstick 1.0 mg/dL (0.2 mg/dL) Urine Leukocyte Esterase Negative (NEG) Urine RBC 0 /HPF (0-2) Urine WBC 0 /HPF (0-4) Urine Bacteria 0 /HPF (0-FEW) White Blood Count 6.7 x10^3/uL (4.0-11.0) Red Blood Count 4.73 x10^6/uL (4.30-5.70) Hemoglobin 14.9 g/dL (13.0-17.5) Hematocrit 42.8 % (39.0-53.0) Mean Corpuscular Volume 91 fL (79-100) Mean Corpuscular Hemoglobin 31 pg (25-35) Mean Corpuscular Hemoglobin Concent 35 g/dL (31-37) Red Cell Distribution Width 12.6 % (11.5-14.5) Platelet Count 255 x10^3/uL (140-400) Neutrophils (%) (Auto) 76 % (31-73) Lymphocytes (%) (Auto) 16 % (24-48) Monocytes (%) (Auto) 6 % (0-9) Eosinophils (%) (Auto) 1 % (0-3) Basophils (%) (Auto) 1 % (0-3) Neutrophils # (Auto) 5.1 x10^3/uL (1.8-7.7) Lymphocytes # (Auto) 1.1 x10^3/uL (1.0-4.8) Monocytes # (Auto) 0.4 x10^3/uL (0.0-1.1) Eosinophils # (Auto) 0.1 x10^3/uL (0.0-0.7) Basophils # (Auto) 0.0 x10^3/uL (0.0-0.2) Sodium Level 134 mmol/L (136-145) Potassium Level 3.9 mmol/L (3.5-5.1) Chloride Level 99 mmol/L (98-107) Carbon Dioxide Level 29 mmol/L (21-32) Anion Gap 6 (6-14) Blood Urea Nitrogen 9 mg/dL (8-26) Creatinine 0.7 mg/dL (0.7-1.3) Estimated GFR (Cockcroft-Gault) 118.9 BUN/Creatinine Ratio 13 (6-20) Glucose Level 151 mg/dL (70-99) Calcium Level 9.0 mg/dL (8.5-10.1) Total Bilirubin 0.9 mg/dL (0.2-1.0) Aspartate Amino Transf (AST/SGOT) 50 U/L (15-37) Alanine Aminotransferase (ALT/SGPT) 40 U/L (16-63) Alkaline Phosphatase 87 U/L (46-116) Total Protein 7.0 g/dL (6.4-8.2) Albumin 3.7 g/dL (3.4-5.0) Albumin/Globulin Ratio 1.1 (1.0-1.7) Lipase 89 U/L (73-393) SARS-CoV-2 Antigen (Rapid) Negative (NEGATIVE) Laboratory Tests Test 09/16/20 12:45 09/16/20 13:18 09/16/20 15:31 Urine Collection Type Unknown Urine Color Yellow Urine Clarity Cloudy Urine pH 6.5 (<5.0-8.0) Urine Specific [place] <=1.005 (1.000-1.030) Urine Protein Negative mg/dL (NEG-TRACE) Urine Glucose (UA) Negative mg/dL (NEG) Urine Ketones (Stick) Negative mg/dL (NEG) Urine Blood Negative (NEG) Urine Nitrite Negative (NEG) Urine Bilirubin Negative (NEG) Urine Urobilinogen Dipstick 1.0 mg/dL (0.2 mg/dL) Urine Leukocyte Esterase Negative (NEG) Urine RBC 0 /HPF (0-2) Urine WBC 0 /HPF (0-4) Urine Bacteria 0 /HPF (0-FEW) White Blood Count 6.7 x10^3/uL (4.0-11.0) Red Blood Count 4.73 x10^6/uL (4.30-5.70) Hemoglobin 14.9 g/dL (13.0-17.5) Hematocrit 42.8 % (39.0-53.0) Mean Corpuscular Volume 91 fL (79-100) Mean Corpuscular Hemoglobin 31 pg (25-35) Mean Corpuscular Hemoglobin Concent 35 g/dL (31-37) Red Cell Distribution Width 12.6 % (11.5-14.5) Platelet Count 255 x10^3/uL (140-400) Neutrophils (%) (Auto) 76 % (31-73) Lymphocytes (%) (Auto) 16 % (24-48) Monocytes (%) (Auto) 6 % (0-9) Eosinophils (%) (Auto) 1 % (0-3) Basophils (%) (Auto) 1 % (0-3) Neutrophils # (Auto) 5.1 x10^3/uL (1.8-7.7) Lymphocytes # (Auto) 1.1 x10^3/uL (1.0-4.8) Monocytes # (Auto) 0.4 x10^3/uL (0.0-1.1) Eosinophils # (Auto) 0.1 x10^3/uL (0.0-0.7) Basophils # (Auto) 0.0 x10^3/uL (0.0-0.2) Sodium Level 134 mmol/L (136-145) Potassium Level 3.9 mmol/L (3.5-5.1) Chloride Level 99 mmol/L (98-107) Carbon Dioxide Level 29 mmol/L (21-32) Anion Gap 6 (6-14) Blood Urea Nitrogen 9 mg/dL (8-26) Creatinine 0.7 mg/dL (0.7-1.3) Estimated GFR (Cockcroft-Gault) 118.9 BUN/Creatinine Ratio 13 (6-20) Glucose Level 151 mg/dL (70-99) Calcium Level 9.0 mg/dL (8.5-10.1) Total Bilirubin 0.9 mg/dL (0.2-1.0) Aspartate Amino Transf (AST/SGOT) 50 U/L (15-37) Alanine Aminotransferase (ALT/SGPT) 40 U/L (16-63) Alkaline Phosphatase 87 U/L (46-116) Total Protein 7.0 g/dL (6.4-8.2) Albumin 3.7 g/dL (3.4-5.0) Albumin/Globulin Ratio 1.1 (1.0-1.7) Lipase 89 U/L (73-393) SARS-CoV-2 Antigen (Rapid) Negative (NEGATIVE) Assessment/Plan Assessment/Plan incarcerated umbilical hernia obesity-BMI 39.3 HTN drug abuse hx plan repair today JATINDER GOLD MD 09/17/20 1321: CONSULT Assessment/Plan Assessment/Plan Pt seen and examined by myself; The patient is a 50 year old male who reported with umbilical pain that he describes as sharp. The evaluation in the ER showed an umbilical hernia containing incarcerated fat. He denies bowel changes. PMH/PSH/ROS/SH as above; exam: alert, oriented, no distress, lungs clear, heart RR and R, abdomen soft, obese, tender at umbilicus with small incarcerated hernia, ext neg for edema. A/P) Incarcerated umbilical hernia, plan for operative repair; the details and risks of surgery were discussed with the patient. He understands and would like to proceed. TYSON VANESSA APRN Sep 17, 2020 08:37 JATINDER GOLD MD Sep 17, 2020 13:21
[2020-09-17 08:46] LABS: PROTHROMBIN TIME PATIENT 13.2 SEC (11.7-14.0)
--- NOTE | 2020-09-17 09:32 | NUR ---
SW following. Discussed with RN, pt from home, room air, cardiac diet, rapid COVID-19 negative. Pt having surgery today. Med Assist following for self pay status. RN advised no SW needs at this time. SW will continue to follow.
[2020-09-17] MEDS ORDERED: PROPOFOL 10 MG/ML (20ML) VIAL. IV ONE (11:03)
[2020-09-17] MEDS ORDERED: MIDAZOLAM HCL/PF 2 MG/2 ML VIAL. ONE (11:03)
[2020-09-17] MEDS ORDERED: fentaNYL PF VIAL 100 MCG/2 ML VIAL ONE ×2 (11:03→13:37)
[2020-09-17] MEDS ORDERED: ROCURONIUM 50 MG/5 ML VIAL. ONE (11:03)
[2020-09-17] MEDS ORDERED: DEXAMETHASONE SOD PHOS 4 MG/ML VIAL ONE ×2 (11:03→12:12)
[2020-09-17] MEDS ORDERED: ONDANSETRON PF 4 MG/2 ML VIAL. ONE (11:03)
[2020-09-17] MEDS ORDERED: LIDOCAINE 2% PF 5 ML VIAL. ONE (11:03)
[2020-09-17] MEDS ORDERED: BUPIVACAINE-EPI 0.5% 30 ML VIAL KIT. ONE (11:34)
[2020-09-17] MEDS ORDERED: SUCCINYLCHOLINE 200 MG/10 ML VIAL. ONE (11:37)
[2020-09-17] MEDS ORDERED: KETOROLAC 30 MG/ML VIAL. ONE (12:42)
[2020-09-17] MEDS ORDERED: FAMOTIDINE 20 MG/2 ML VIAL ONE (12:42)
[2020-09-17] MEDS ORDERED: NEOSTIGMINE METHYLSULFATE 5 MG/5 ML SYRINGE. ONE (13:06)
[2020-09-17] MEDS ORDERED: GLYCOPYRROLATE 1 MG/5 ML VIAL. ONE (13:06)
[2020-09-17] MEDS ORDERED: SEVOFLURANE 61 TO 120 MINUTES. IH ONE (13:11)
--- NOTE | 2020-09-17 13:25 | PDOC4 ---
Operative Note Operative Note Operative Note: Preoperative Diagnosis: Incarcerated umbilical hernia Postoperative Diagnosis: Same Procedure: Repair of incarcerated umbilical hernia with mesh Surgeon: Claudio Reference And Instruction Librarian: Elizabeth PAIZ Anesthesia: General` EBL: 10 mL Specimen: None Drains: None Complications: None Indication: The patient is a 50-year-old male who presented with incarcerated umbilical hernia. He was offered surgical repair. The risks of surgery were discussed which include bleeding, infection, recurrence, pain, anesthetic risk, potential need for additional surgery procedure. He understands and would like to proceed. Description: The patient was taken to the operating room and placed supine in the operating table. General anesthesia was performed. The abdomen was prepped with ChloraPrep and draped with sterile towels, sheets, and an Ioban. A curved infraumbilical incision was made in the skin with a scalpel. Cautery dissection was carried down to the fascia. The umbilical tissue was elevated off the fascia exposing the defect. There was some incarcerated fat with moderate inflammation. A preperitoneal plane was developed circumferentially with blunt dissection. The incarcerated contents were able to be reduced. A small Ventralex ST mesh was then placed in this preperitoneal plane. The mesh was sutured at the 12, 3, 6, 9:00 positions using 0 Prolene in a horizontal mattress fashion. The fascial edges were closed over the mesh with 0 Prolene. The umbilicus was secured back to the fascia with 0 Vicryl. The subcutaneous tissue was closed with 3-0 Vicryl. The skin was closed with 4-0 Monocryl. The incision was infiltrated with half percent Marcaine with epinephrine. Steri-Strips and a sterile dressing were applied. The patient tolerated the procedure well and was sent to the recovery room in stable condition. At the end of the case all counts were correct. JATINDER GOLD MD Sep 17, 2020 13:25
[2020-09-17] MEDS ORDERED: PROCHLORPERAZINE 10 MG/2 ML VIAL. ONE (13:37)
[2020-09-17] MEDS ORDERED: oxyCODONE/APAP 5/325 1 TAB TABLET PO PRN ×2 (16:00)
[2020-09-17] MEDS: HYDROcodone/APAP 5/325MG 1 TAB TABLET PO PRN ×2 (16:43→22:14)
[2020-09-18] MEDS: PIPERACILLIN/TAZOBACTAM 3.375 GM in IV NORMAL SALINE 50ML 50 ML IV SCH ×2 (00:16→05:38)
[2020-09-18 03:00] VITALS: BP 164/74
[2020-09-18] MEDS: HYDROcodone/APAP 5/325MG 1 TAB TABLET PO PRN (05:17)
[2020-09-18] MEDS: HEPARIN for SUB-Q USE 5,000 UNIT/ML VIAL. SQ SCH (05:51)
[2020-09-18 07:26] VITALS: BP 118/85
--- NOTE | 2020-09-18 10:40 | PDOC ---
PROGRESS NOTES Date of Service DATE: 09/18/20 TIME: 10:40 Subjective Subjective doing well postop Objective Objective Vital Signs Date Time Temp Pulse Resp B/P (MAP) Pulse Ox O2 Delivery O2 Flow Rate FiO2 09/18/20 07:26 97.9 94 18 118/85 (96) 94 Room Air 97.9 09/17/20 15:00 2.0 Intake and Output 09/18/20 07:00 Intake Total 1600 ml Output Total 310 ml Balance 1290 ml IV Total 1600 ml Output Urine Total 300 ml Estimated Blood Loss 10 ml # Voids 2 Physical Exam Abdomen: Soft (dressing intact) Assessment Assessment Problems Medical Problems: (1) Incarcerated umbilical hernia Status: Acute Plan Plan of Care OK to discharge; FU with Dr Gold in 2 weeks in office, call for appt [phone] Comment Review of Relevant I have reviewed the following items kirstie (where applicable) has been applied. Labs Laboratory Tests Test 09/16/20 12:45 09/16/20 13:18 09/16/20 15:31 09/17/20 07:13 Urine Collection Type Unknown Urine Color Yellow Urine Clarity Cloudy Urine pH 6.5 (<5.0-8.0) Urine Specific [place] <=1.005 (1.000-1.030) Urine Protein Negative mg/dL (NEG-TRACE) Urine Glucose (UA) Negative mg/dL (NEG) Urine Ketones (Stick) Negative mg/dL (NEG) Urine Blood Negative (NEG) Urine Nitrite Negative (NEG) Urine Bilirubin Negative (NEG) Urine Urobilinogen Dipstick 1.0 mg/dL (0.2 mg/dL) Urine Leukocyte Esterase Negative (NEG) Urine RBC 0 /HPF (0-2) Urine WBC 0 /HPF (0-4) Urine Bacteria 0 /HPF (0-FEW) White Blood Count 6.7 x10^3/uL (4.0-11.0) Red Blood Count 4.73 x10^6/uL (4.30-5.70) Hemoglobin 14.9 g/dL (13.0-17.5) Hematocrit 42.8 % (39.0-53.0) Mean Corpuscular Volume 91 fL (79-100) Mean Corpuscular Hemoglobin 31 pg (25-35) Mean Corpuscular Hemoglobin Concent 35 g/dL (31-37) Red Cell Distribution Width 12.6 % (11.5-14.5) Platelet Count 255 x10^3/uL (140-400) Neutrophils (%) (Auto) 76 % (31-73) Lymphocytes (%) (Auto) 16 % (24-48) Monocytes (%) (Auto) 6 % (0-9) Eosinophils (%) (Auto) 1 % (0-3) Basophils (%) (Auto) 1 % (0-3) Neutrophils # (Auto) 5.1 x10^3/uL (1.8-7.7) Lymphocytes # (Auto) 1.1 x10^3/uL (1.0-4.8) Monocytes # (Auto) 0.4 x10^3/uL (0.0-1.1) Eosinophils # (Auto) 0.1 x10^3/uL (0.0-0.7) Basophils # (Auto) 0.0 x10^3/uL (0.0-0.2) Sodium Level 134 mmol/L (136-145) Potassium Level 3.9 mmol/L (3.5-5.1) Chloride Level 99 mmol/L (98-107) Carbon Dioxide Level 29 mmol/L (21-32) Anion Gap 6 (6-14) Blood Urea Nitrogen 9 mg/dL (8-26) Creatinine 0.7 mg/dL (0.7-1.3) Estimated GFR (Cockcroft-Gault) 118.9 BUN/Creatinine Ratio 13 (6-20) Glucose Level 151 mg/dL (70-99) Calcium Level 9.0 mg/dL (8.5-10.1) Total Bilirubin 0.9 mg/dL (0.2-1.0) Aspartate Amino Transf (AST/SGOT) 50 U/L (15-37) Alanine Aminotransferase (ALT/SGPT) 40 U/L (16-63) Alkaline Phosphatase 87 U/L (46-116) Total Protein 7.0 g/dL (6.4-8.2) Albumin 3.7 g/dL (3.4-5.0) Albumin/Globulin Ratio 1.1 (1.0-1.7) Lipase 89 U/L (73-393) Coronavirus (PCR) Not detected (Not Detected) SARS-CoV-2 Antigen (Rapid) Negative (NEGATIVE) Prothrombin Time 13.2 SEC (11.7-14.0) Prothromb Time International Ratio 1.0 (0.8-1.1) Activated Partial Thromboplast Time 30 SEC (24-38) Medications Current Medications Iohexol (Omnipaque 300 Mg/ml) 75 ml 1X ONCE IV Last administered on 09/16/20at 14:27; Start 09/16/20 at 14:15; Stop 09/16/20 at 14:17; Status DC Info (CONTRAST GIVEN -- Rx MONITORING) 1 each PRN DAILY PRN MC SEE COMMENTS; Start 09/16/20 at 14:30; Stop 09/18/20 at 14:29 Ondansetron HCl (Zofran) 4 mg PRN Q8HRS PRN IV NAUSEA/VOMITING; Start 09/16/20 at 15:45; Stop 09/17/20 at 15:44; Status DC Morphine Sulfate (Morphine Sulfate) 2 mg PRN Q2HR PRN IV PAIN; Start 09/16/20 at 15:45; Stop 09/17/20 at 15:44; Status DC Ondansetron HCl (Zofran) 4 mg PRN Q6HRS PRN IVP NAUSEA/VOMITING; Start 09/16/20 at 16:30 Al Hydroxide/Mg Hydroxide (Mylanta Plus Xs) 30 ml PRN Q3HRS PRN PO HEARTBURN / GAS; Start 09/16/20 at 16:30 Calcium Carbonate/ Glycine (Tums) 500 mg PRN Q3HRS PRN PO UPSET STOMACH; Start 09/16/20 at 16:30 Zolpidem Tartrate (Ambien) 5 mg PRN QHS PRN PO INSOMNIA, MAY REPEAT IN 1HR; Start 09/16/20 at 16:30 Acetaminophen/ Hydrocodone Bitart (Lortab 5/325) 1 tab PRN Q4HRS PRN PO MILD PA IN 2ND CHOICE Last administered on 09/17/20at 22:14; Start 09/16/20 at 16:30 Acetaminophen/ Hydrocodone Bitart (Lortab 5/325) 2 tab PRN Q4HRS PRN PO MODERATE PAIN, SEVERE PAIN Last administered on 09/18/20at 05:17; Start 09/16/20 at 16:30 Acetaminophen (Tylenol) 650 mg PRN Q6HRS PRN PO Headaches, Temp > 101.5F; Start 09/16/20 at 16:30 Magnesium Hydroxide (Milk Of Magnesia) 2,400 mg PRN Q12HR PRN PO CONSTIPATION; Start 09/16/20 at 16:30 Bisacodyl (Dulcolax Supp) 10 mg PRN DAILY PRN [place] CONSTIPATION; Start 09/16/20 at 16:30 Heparin Sodium (Porcine) (Heparin Sodium) 5,000 unit Q8HRS SQ Last administered on 09/18/20at 05:51; Start 09/16/20 at 17:00 Morphine Sulfate (Morphine Sulfate) 4 mg PRN Q2HRS PRN IV MODERATE TO SEVERE PAIN Last administered on 09/17/20at 07:44; Start 09/16/20 at 16:30 Labetalol HCl (Normodyne Iv Push) 10 mg PRN Q20MIN PRN IVP HYPERTENSION; Start 09/16/20 at 16:45 Hydralazine HCl (Apresoline Inj) 10 mg PRN Q20MIN PRN IVP HYPERTENSION-1ST CHOICE; Start 09/16/20 at 16:45 Piperacillin Sod/ Tazobactam Sod (Zosyn Per Pharmacy) 1 each PRN DAILY PRN MC SEE COMMENTS; Start 09/16/20 at 16:45 Piperacillin Sod/ Tazobactam Sod 3.375 gm/Sodium Chloride 50 ml @ 100 mls/hr 1X ONCE IV Last administered on 09/16/20at 17:06; Start 09/16/20 at 17:00; Stop 09/16/20 at 17:29; Status DC Fentanyl Citrate (Fentanyl 2ml Vial) 25 mcg PRN Q5MIN PRN IVP MILD PAIN 1-3; Start 09/17/20 at 06:00; Stop 09/18/20 at 05:59; Status DC Fentanyl Citrate (Fentanyl 2ml Vial) 50 mcg PRN Q5MIN PRN IVP MODERATE PAIN 4-6 Last administered on 09/17/20at 13:43; Start 09/17/20 at 06:00; Stop 09/18/20 at 05:59; Status DC Morphine Sulfate (Morphine Sulfate) 1 mg PRN Q10MIN PRN IVP SEVERE PAIN 7-10; Start 09/17/20 at 06:00; Stop 09/18/20 at 05:59; Status DC Ringer's Solution 1,000 ml @ 30 mls/hr Q24H IV Last administered on 09/17/20at 13:30; Start 09/17/20 at 06:00; Stop 09/17/20 at 17:59; Status DC Hydromorphone HCl (Dilaudid) 0.5 mg PRN Q10MIN PRN IVP SEVERE PAIN 7-10, 2nd CHOICE; Start 09/17/20 at 06:00; Stop 09/18/20 at 05:59; Status DC Prochlorperazine Edisylate (Compazine) 5 mg PACU PRN PRN IVP NAUSEA, MRX1 Last administered on 09/17/20at 13:43; Start 09/17/20 at 06:00; Stop 09/18/20 at 05:59; Status DC Piperacillin Sod/ Tazobactam Sod 3.375 gm/Sodium Chloride 50 ml @ 100 mls/hr Q6HRS IV Last administered on 09/18/20at 05:38; Start 09/17/20 at 00:00 Propofol (Diprivan) 200 mg STK-MED ONCE IV ; Start 09/17/20 at 11:03; Stop 09/17/20 at 11:03; Status DC Lidocaine HCl (Lidocaine Pf 2% Vial) 5 ml STK-MED ONCE .ROUTE ; Start 09/17/20 at 11:03; Stop 09/17/20 at 11:03; Status DC Ondansetron HCl (Zofran) 4 mg STK-MED ONCE .ROUTE ; Start 09/17/20 at 11:03; Stop 09/17/20 at 11:03; Status DC Dexamethasone Sodium Phosphate (Decadron) 4 mg STK-MED ONCE .ROUTE ; Start 09/17/20 at 11:03; Stop 09/17/20 at 11:03; Status DC Rocuronium [place] (Zemuron) 50 mg STK-MED ONCE .ROUTE ; Start 09/17/20 at 11:03; Stop 09/17/20 at 11:03; Status DC Fentanyl Citrate (Fentanyl 2ml Vial) 100 mcg STK-MED ONCE .ROUTE ; Start 09/17/20 at 11:03; Stop 09/17/20 at 11:03; Status DC Midazolam HCl (Versed) 2 mg STK-MED ONCE .ROUTE ; Start 09/17/20 at 11:03; Stop 09/17/20 at 11:03; Status DC Bupivacaine HCl/ Epinephrine Bitart (Sensorcain-Epi 0.5% Kit) 30 ml STK-MED ONCE .ROUTE Last administered on 09/17/20at 12:16; Start 09/17/20 at 11:34; Stop 09/17/20 at 11:34; Status DC Succinylcholine Chloride ([place]) 200 mg STK-MED ONCE .ROUTE ; Start 09/17/20 at 11:37; Stop 09/17/20 at 11:37; Status DC Dexamethasone Sodium Phosphate (Decadron) 4 mg STK-MED ONCE .ROUTE ; Start 09/17/20 at 12:12; Stop 09/17/20 at 12:12; Status DC Ketorolac Tromethamine (Toradol 30mg Vial) 30 mg STK-MED ONCE .ROUTE ; Start 09/17/20 at 12:42; Stop 09/17/20 at 12:42; Status DC Famotidine (Pepcid Vial) 20 mg STK-MED ONCE .ROUTE ; Start 09/17/20 at 12:42; Stop 09/17/20 at 12:42; Status DC Neostigmine [place] (Neostigmine Methylsulfate) 5 mg STK-MED ONCE .ROUTE ; Start 09/17/20 at 13:06; Stop 09/17/20 at 13:06; Status DC Glycopyrrolate (Robinul) 1 mg STK-MED ONCE .ROUTE ; Start 09/17/20 at 13:06; Stop 09/17/20 at 13:06; Status DC Sevoflurane (Ultane) 60 ml STK-MED ONCE IH ; Start 09/17/20 at 13:11; Stop 09/17/20 at 13:12; Status DC Fentanyl Citrate (Fentanyl 2ml Vial) 100 mcg STK-MED ONCE .ROUTE ; Start 09/17/20 at 13:37; Stop 09/17/20 at 13:37; Status DC Prochlorperazine Edisylate (Compazine) 10 mg STK-MED ONCE .ROUTE ; Start 09/17/20 at 13:37; Stop 09/17/20 at 13:37; Status DC Oxycodone/ Acetaminophen (Percocet 5/325) 1 tab PRN Q4HRS PRN PO MILD PAIN 1-3; Start 09/17/20 at 16:00 Oxycodone/ Acetaminophen (Percocet 5/325) 2 tab PRN Q4HRS PRN PO MODERATE- SEVERE PAIN; Start 09/17/20 at 16:00 Active Scripts Active Reported [atenolol] [lisinopril] Vitals/I & O Vital Sign - Last 24 Hours 09/17/20 09/17/20 09/17/20 09/17/20 11:00 11:30 13:26 13:26 Temp 97.9 97.9 98.3 97.9 97.9 98.3 Pulse 56 56 65 Resp 18 15 15 B/P (MAP) 146/87 (106) 146/87 114/45 Pulse Ox 98 98 96 O2 Delivery Room Air Room Air Room Air Room Air 09/17/20 09/17/20 09/17/20 09/17/20 13:41 13:43 13:56 14:11 Temp 98.3 98.3 98.3 98.3 Pulse 59 57 58 Resp 15 15 15 20 B/P (MAP) 104/62 121/71 117/73 Pulse Ox 94 96 95 97 O2 Delivery Room Air Room Air Room Air Nasal Cannula Nasal Cannula O2 Flow Rate 10.0 2 2 09/17/20 09/17/20 09/17/20 09/17/20 14:20 14:30 14:45 15:00 Temp 97.9 97.9 Pulse 65 57 58 B/P (MAP) 137/65 (89) 147/90 (109) 135/101 (112) Pulse Ox 94 O2 Delivery Nasal Cannula Nasal Cannula O2 Flow Rate 2 2.0 09/17/20 09/17/20 09/17/20 09/17/20 15:15 15:45 16:43 17:55 Pulse 60 64 B/P (MAP) 135/72 (93) 139/71 (93) Pulse Ox 94 O2 Delivery Room Air Room Air 09/17/20 09/17/20 09/17/20 09/17/20 19:00 19:55 22:14 23:00 Temp 97.5 98.0 97.5 98.0 Pulse 76 77 Resp 20 20 18 B/P (MAP) 137/62 (87) 153/84 (107) Pulse Ox 94 95 O2 Delivery Room Air Room Air Room Air Room Air 09/17/20 09/18/20 09/18/20 09/18/20 23:14 03:00 05:17 07:26 Temp 98.0 97.9 98.0 97.9 Pulse 73 94 Resp 20 18 20 18 B/P (MAP) 164/74 (104) 118/85 (96) Pulse Ox 97 94 O2 Delivery Room Air Room Air Room Air Room Air Intake and Output 09/17/20 09/17/20 09/18/20 15:00 23:00 07:00 Intake Total 1550 ml 50 ml Output Total 110 ml 200 ml Balance 1440 ml -150 ml Justifications for Admission Other Justification Incarcerated umbilical hernia JATINDER GOLD MD Sep 18, 2020 10:40
[2020-09-18] MEDS ORDERED: HYDR-2761 PO (10:51)
--- NOTE | 2020-09-18 10:52 | DISCH ---
DISCHARGE INSTRUCTIONS Condition on Discharge Condition on Discharge: Stable Activity After Discharge Activity Instructions for Disc: Avoid exertion KING LAI MD Sep 18, 2020 10:52
[2020-09-18] MEDS ORDERED: ATEN100T PO (10:54)
[2020-09-18] MEDS ORDERED: LISI1TAB23 PO (10:54)
[2020-09-18 11:15] VITALS: BP 163/93
--- NOTE | 2020-09-18 11:16 | PDOC ---
GENERAL General: Discharge summary [id number] VITAL SIGNS Vital Signs/I&O: Vital Signs Date Time Temp Pulse Resp B/P (MAP) Pulse Ox O2 Delivery O2 Flow Rate FiO2 09/18/20 07:26 97.9 94 18 118/85 (96) 94 Room Air 97.9 09/17/20 15:00 2.0 I & O 09/17/20 09/17/20 09/18/20 15:00 23:00 07:00 Intake Total 1550 ml 50 ml Output Total 110 ml 200 ml Balance 1440 ml -150 ml ALLERGIES Allergies: Allergies Coded Allergies Type Severity Reaction Last Updated Verified No Known Drug Allergies 09/16/20 No MEDS Medications: Current Medications Medications (Trade) Dose Ordered Sig/Antonio Route PRN Reason Start Time Stop Time Status Last Admin Dose Admin Bupivacaine HCl/ Epinephrine Bitart (Sensorcain-Epi 0.5% Kit) 30 ml STK-MED ONCE .ROUTE 09/17/20 11:34 09/17/20 11:34 DC 09/17/20 12:16 Justifications for Admission Other Justification Incarcerated umbilical hernia KING LAI MD Sep 18, 2020 11:16
--- NOTE | 2020-09-18 11:28 | DS ---
DATE OF DISCHARGE: HOSPITAL COURSE: This patient is a 50-year-old man who has not had a continuity source of primary care due to lack of insurance and lack of resources. In the past, he did see Dr. Amanda Hernandez at [facility], but was unable to afford the followup care. He has been off of his blood pressure medication for the last 7 months and wants me to prescribe that on his way out today; however, his blood pressure has been mostly at target and this morning 118/60. The patient presented yesterday with an incarcerated umbilical hernia. He was taken to the operating room by Dr. Lenny Snyder and had it repaired. He is feeling better, up and about the room, eating. Pain is well controlled. He has been cleared by Dr. Snyder for discharge. Dr. Snyder did write him a short prescription for narcotics. The patient and I had a lengthy discussion about followup care and he will call Dr. Hernandez's office and also look into the [facility] for his care. PHYSICAL EXAMINATION: VITAL SIGNS: This morning is notable for that the patient has been afebrile, blood pressure has been elevated but mostly at target and this morning at 118/85. Heart rate is in the 70s and regular. He is breathing comfortably and saturating normally on room air. GENERAL: He is a pleasant 50-year-old man, alert and oriented x 3, in no acute distress. HEENT: Unremarkable. NECK: Soft and supple. No adenopathy or thyromegaly noted. CHEST: Clear to auscultation. HEART: S1, S2 normal. Regular rate and rhythm. No murmurs or gallops are noted. ABDOMEN: Obese, soft, nontender, nondistended. No masses or organomegaly noted. EXTREMITIES: Unremarkable for acute abnormality. FINAL DIAGNOSES: 1. Incarcerated umbilical hernia. 2. Hypertension. 3. Chronic multimorbidity. Otherwise, as outlined in the history and physical. KING LAI MD DR: MAE/oksana JOB#: [id number] / [id number] ANDA Obregon MD
--- NOTE | 2020-09-18 12:31 | NUR ---
patient discharged home via private vehicle. meds and follow up reviewed. pt v/u. IV removed cath intact. pt stable upon dc.
== END 2020-09-18 12:33 | disposition home or self-care (01) | DRG 355 ==
LOC: ER 12:43 → ED HOLD 15:44 → 5 NORTH 19:35
PROVIDERS: ADMIT Family Medicine; ATTEND Family Medicine
PROC: 0WUF0JZ Supplement Abdominal Wall with Synthetic Substitute, Open Approach (ICD-10-PCS; principal; 2020-09-17 12:00)
DX: K42.0 Umbilical hernia with obstruction, without gangrene (principal); E66.9 Obesity, unspecified; E78.5 Hyperlipidemia, unspecified; I10 Essential (primary) hypertension; I16.0 Hypertensive urgency; Z68.39 Body mass index [BMI] 39.0-39.9, adult; Z82.3 Family history of stroke; Z20.822 Contact with and (suspected) exposure to COVID-19; Z79.899 Other long term (current) drug therapy; Z90.49 Acquired absence of other specified parts of digestive tract
CPT/HCPCS: 36415; 74177; 80053; 81001; 83690; 85025; 85610; 85730; 87426; 96365; 96375; 99285; C1781; J0330; J0780; J1100; J1644; J1885; J2250; J2270; J2405; J2543; J2704; J2710; J3010; J3490; J7120; Q9967; U0003; G0378